=== PATIENT | female | born 1975 | race Two or more races ===

== ENCOUNTER 2017-04-13 07:09 | Emergency (ER) | payer BC ==
[2017-04-13 07:40] VITALS: TEMP 99.2; BMI 20.9
[2017-04-13] MEDS ORDERED: predniSONE 20 MG TABLET (UD) PO ONE (09:03)
[2017-04-13] MEDS ORDERED: ALBUTEROL SO4 2.5/IPRATROPIUM 0.5 INH SOL 3 ML VIAL.NEB. NEB ONE (09:03)
[2017-04-13] MEDS ORDERED: AZITHROMYCIN 500 MG TABLET PO ONE (09:04)
--- NOTE | 2017-04-13 11:17 | PDOC ---
History of Present Illness <Maicol Watts - Last Filed: 04/13/17 11:50> - History of Present Illness Initial Comments: 04/13/17 11:12 "The patient is a 42 year old female with no significant PMH who presents to the emergency department with productive cough which has worsened over the past few days. She describes her cough as productive of greenish sputum with associated throat tightness and shortness of breath. She also notes associated chest tightness which she describes as a burning sensation. The patients notes that the patient has had these symptoms for about 10 days which have worsened within the past 2-3 days. She reports taking Albuterol inhaler to some relief. Denies h/o asthma but states that she has been prescribed albuterol nebs in the past with URIs. The patient denies headache and dizziness. Denies fever, chills, nausea, vomit, diarrhea and constipation. Denies dysuria, frequency, urgency and hematuria. Allergies: NKA Past surgical history: . Tubal ligation. Social history: No reported cigarette, alcohol, or drug use PCP: None reported. " <Tommy Urbina - Last Filed: 04/14/17 18:54> - General Chief Complaint: Cold Symptoms Stated Complaint: DIFFICULTY BREATHING Time Seen by Provider: 04/13/17 08:54 Past History <Maicol Watts - Last Filed: 04/13/17 11:50> - Past Medical History Asthma: No Cancer: No Cardiac Disorders: No COPD: No Diabetes: No HTN: No Seizures: No Thyroid Disease: No - Suicide/Smoking/Psychosocial Hx Smoking Status: No Smoking History: Never smoked Years of Tobacco Use: 0 Have you smoked in the past 12 months: No Number of Cigarettes Smoked Daily: 0 Cigars Per Day: 0 Information on smoking cessation initiated: No Hx Alcohol Use: No Drug/Substance Use Hx: No Substance Use Type: None Hx Substance Use Treatment: No <Tommy Urbina - Last Filed: 04/14/17 18:54> - Past Medical History Allergies/Adverse Reactions: Allergies Allergy/AdvReac Type Severity Reaction Status Date / Time No Known Allergies Allergy Verified 11/06/15 16:43 Home Medications: Ambulatory Orders Azithromycin 250 mg PO DAILY #4 tablet 04/13/17 Prednisone [Prednisone 50 MG TABLETS] 50 mg PO DAILY #4 tablet 04/13/17 Review of Systems - Review of Systems Comments:: 04/13/17 11:13 "GENERAL/CONSTITUTIONAL: No fever or chills. No weakness. HEAD, EYES, EARS, NOSE AND THROAT: No change in vision. No ear pain or discharge. No sore throat. CARDIOVASCULAR: No chest pain or SOB RESPIRATORY: (+) Productive cough.. No wheezing or hemoptysis. GASTROINTESTINAL: No nausea, vomiting, diarrhea or constipation. GENITOURINARY: No dysuria, frequency, or change in urination. MUSCULOSKELETAL: No joint or muscle swelling or pain. No neck or back pain. SKIN: No rash NEUROLOGIC: No headache, vertigo, loss of consciousness, or change in strength/ sensation. ENDOCRINE: No increased thirst. No abnormal weight change. HEMATOLOGIC/LYMPHATIC: No anemia, easy bleeding, or history of blood clots. ALLERGIC/IMMUNOLOGIC: No hives or skin allergy. " <Tommy Urbina - Last Filed: 04/14/17 18:54> *Physical Exam - Vital Signs Last Vital Signs Temp Pulse Resp BP Pulse Ox 99.2 F 78 22 126/88 98 04/13/17 07:38 04/13/17 11:35 04/13/17 11:35 04/13/17 11:35 04/13/17 11:35 <Maicol Watts - Last Filed: 04/13/17 11:50> - Vital Signs Last Vital Signs Temp Pulse Resp BP Pulse Ox 99.2 F 82 20 127/101 100 04/13/17 07:38 04/13/17 07:38 04/13/17 07:38 04/13/17 07:38 04/13/17 07:38 - Physical Exam Comments: 04/13/17 11:14 "GENERAL: Awake, alert, and fully oriented, in no acute distress HEAD: No signs of trauma EYES: PERRLA, EOMI, sclera anicteric, conjunctiva clear ENT: Auricles normal inspection, hearing grossly normal, nares patent, oropharynx clear without exudates. Moist mucosa NECK: Nontender, no stepoffs, Normal ROM, supple, no lymphadenopathy, JVD, or masses LUNGS: Breath sounds equal, clear to auscultation bilaterally. No wheezes, and no crackles HEART: Regular rate and rhythm, normal S1 and S2, no murmurs, rubs or gallops ABDOMEN: Soft, nontender, normoactive bowel sounds. No guarding, no rebound. No masses EXTREMITIES: Normal range of motion, no edema. No clubbing or cyanosis. No cords, erythema, or tenderness NEUROLOGICAL: Cranial nerves II through XII intact. 5/5 strength and sensation in all extremities, Normal speech, normal gait SKIN: Warm, Dry, normal turgor, no rashes or lesions noted. " <Tommy Urbina - Last Filed: 04/14/17 18:54> ED Treatment Course - ADDITIONAL ORDERS Additional order review: Laboratory Results 04/13/17 09:06 Urine HCG, Qual Negative - Medications Given in the ED: ED Medications Discontinued Medications Generic Name Dose Route Start Last Admin Trade Name Freq PRN Reason Stop Dose Admin Albuterol/Ipratropium 1 amp 04/13/17 09:03 04/13/17 09:18 Duoneb - NEB 04/13/17 09:04 1 amp ONCE ONE Administration Azithromycin 500 mg 04/13/17 09:04 04/13/17 09:18 Azithromycin PO 04/13/17 09:05 500 mg ONCE ONE Administration Prednisone 40 mg 04/13/17 09:03 04/13/17 09:18 Deltasone - PO 04/13/17 09:04 40 mg ONCE ONE Administration <Maicol Watts - Last Filed: 04/13/17 11:50> - ADDITIONAL ORDERS Additional order review: Laboratory Results 04/13/17 09:06 Urine HCG, Qual Negative - RADIOLOGY Radiology Studies Ordered: Category Date Time Status CHEST PA & LAT [RAD] Stat Radiology 04/13/17 09:02 Completed - Medications Given in the ED: ED Medications Discontinued Medications Generic Name Dose Route Start Last Admin Trade Name Freq PRN Reason Stop Dose Admin Albuterol/Ipratropium 1 amp 04/13/17 09:03 04/13/17 09:18 Duoneb - NEB 04/13/17 09:04 1 amp ONCE ONE Administration Azithromycin 500 mg 04/13/17 09:04 04/13/17 09:18 Azithromycin PO 04/13/17 09:05 500 mg ONCE ONE Administration Prednisone 40 mg 04/13/17 09:03 04/13/17 09:18 Deltasone - PO 04/13/17 09:04 40 mg ONCE ONE Administration <Tommy Urbina - Last Filed: 04/14/17 18:54> Medical Decision Making - Medical Decision Making 04/13/17 11:16 42 F with productive cough x 10 days. Normal lung exam. Likely bronchitis. Pt has no h/o asthma but has responded to nebs in the past. - CXR - Trial of nebs, steroids - Azithromycin 04/13/17 11:19 CXR clear Pt reassessed s/p nebs and steroids - now feels somewhat better. Pt well appearing with normal vitals, Clinically stable for DC. I discussed the physical exam findings, ancillary test results and final diagnoses with the patient. I answered all of the patient's questions. The patient was satisfied with the care received and felt comfortable with the discharge plan and treatment plan. The patient agrees to follow up with the primary care physician within 24-72 hours. <Tommy Urbina - Last Filed: 04/14/17 18:54> *DC/Admit/Observation/Transfer - Attestations Scribe Attestion: 04/13/17 11:50 Documentation prepared by Maicol Watts, acting as director medical for Tommy Urbina MD. <Maicol Watts - Last Filed: 04/13/17 11:50> - Attestations Physician Attestion: 04/13/17 11:18 I, Dr. Tommy Urbina MD, attest that this document has been prepared under my direction and personally reviewed by me in its entirety. I further attest, that it accurately reflects all work, treatment, procedures and medical decision -making performed by me. <Tommy Urbina - Last Filed: 04/14/17 18:54> Diagnosis at time of Disposition: Bronchitis - Discharge Dispostion Disposition: HOME - Prescriptions Prescriptions: Azithromycin 250 mg PO DAILY #4 tablet Prednisone [Prednisone 50 MG TABLETS] 50 mg PO DAILY #4 tablet - Patient Instructions Printed Discharge Instructions: DI for Acute Bronchitis Additional Instructions: Take the prednisone and azithromycin as prescribed. You can also use your albuterol as needed for coughing. Follow up with your primary doctor on Sunday. If you experience worsening cough, chest pain, shortness of breath, or any other concerning symptoms, return to the ER immediately. Print Language: SLOVENIAN
[2017-04-13 11:46] VITALS: BP 126/88; PULSE 78
== END 2017-04-13 11:46 | disposition home or self-care (01) ==
LOC: JER 07:09
PROC: 3E0F7GC Introduction of Other Therapeutic Substance into Respiratory Tract, Via Natural or Artificial Opening (ICD-10-PCS; principal; 2017-04-13)
DX: J40 Bronchitis, not specified as acute or chronic (principal)
CPT/HCPCS: 71046-TC-FY; 84703; 99282-25

== ENCOUNTER 2017-07-11 08:41 | Emergency (ER) | payer BC ==
[2017-07-11 08:48] VITALS: BMI 25.1
--- NOTE | 2017-07-11 08:56 | PDOC ---
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 She states she feels slightly weak today and reports goosebumps but denies fevers or chills. She states she can not tolerate even small sips of water without exacerbating her symptoms. She reports multiple episodes of nonbilious/nonbloody emesis daily since. She reports multiple episodes of nonbloody diarrhea which she describes as yellow in color today. She states she has a child at home who had viral infection a couple days prior to her onset of symptoms. She also reports a throat burning sensation which she associates with vomiting. She states she is producing less urine, but denies hematuria, dysuria. She denies chest pain, shortness of breath, headache and dizziness. She denies fever, chills, constipation. She denies dysuria, urgency and hematuria. Allergies: NKDA Past surgical history: . Tubal ligation. Social history: No reported cigarette, alcohol, or drug use PCP: None reported. <Jojo Aceves - Last Filed: 07/11/17 10:33> <Mami Smith - Last Filed: 07/11/17 12:02> - General Chief Complaint: Vomiting/Diarrhea Stated Complaint: VOMITING Time Seen by Provider: 07/11/17 08:54 Past History <Jojo Aceves - Last Filed: 07/11/17 10:33> - Past Medical History Asthma: No Cancer: No Cardiac Disorders: No COPD: No Diabetes: No HTN: No Seizures: No Thyroid Disease: No - Suicide/Smoking/Psychosocial Hx Smoking Status: No Smoking History: Never smoked Years of Tobacco Use: 0 Have you smoked in the past 12 months: No Number of Cigarettes Smoked Daily: 0 Cigars Per Day: 0 Information on smoking cessation initiated: No Hx Alcohol Use: No Drug/Substance Use Hx: No Substance Use Type: None Hx Substance Use Treatment: No <Mami Smith - Last Filed: 07/11/17 12:02> - Past Medical History Allergies/Adverse Reactions: Allergies Allergy/AdvReac Type Severity Reaction Status Date / Time No Known Allergies Allergy Verified 07/11/17 08:42 Home Medications: Ambulatory Orders Azithromycin 250 mg PO DAILY #4 tablet 04/13/17 Prednisone [Prednisone 50 MG TABLETS] 50 mg PO DAILY #4 tablet 04/13/17 Ondansetron [Ondansetron Odt] 8 mg PO TID PRN #10 tab.rapdis 07/11/17 Review of Systems - Review of Systems Able to Perform ROS?: Yes Comments:: 07/11/17 09:44 GENERAL/CONSTITUTIONAL:(+) generalized weakness. No fever or chills. HEAD, EYES, EARS, NOSE AND THROAT: (+) throat burning. No change in vision. No ear pain or discharge. GASTROINTESTINAL: (+) nausea, vomiting, diarrhea. No constipation. GENITOURINARY: (+) slight decrease in urinary output. No dysuria, frequency CARDIOVASCULAR: No chest pain or shortness of breath. RESPIRATORY: No cough, wheezing, or hemoptysis. MUSCULOSKELETAL: No joint or muscle swelling or pain. No neck or back pain. SKIN: No rash NEUROLOGIC: No headache, vertigo, loss of consciousness, or change in strength/ sensation. ENDOCRINE: No increased thirst. No abnormal weight change. HEMATOLOGIC/LYMPHATIC: No anemia, easy bleeding, or history of blood clots. ALLERGIC/IMMUNOLOGIC: No hives or skin allergy. <Jojo Aceves - Last Filed: 07/11/17 10:33> *Physical Exam - Vital Signs Last Vital Signs Temp Pulse Resp BP Pulse Ox 98.7 F 93 H 14 138/84 99 07/11/17 08:42 07/11/17 08:42 07/11/17 08:42 07/11/17 08:42 07/11/17 08:57 - Physical Exam Comments: 07/11/17 09:44 Constitutional: Awake, alert, oriented. No acute distress. Head: Normocephalic. Atraumatic Eyes: PERRL. EOMI. Conjunctivae are not pale. ENT: (+)Mucous membranes are Dry and intact. Posterior pharynx without exudates or erythema. Uvula midline. Neck: Supple. Full ROM. No lymphadenopathy. Cardiovascular: (+) Tachycardic. Regular rhythm. S1, S2 regular. Distal pulses are 2+ and symmetric. Pulmonary/Chest: No evidence of respiratory distress. Clear to auscultation bilaterally No wheezing, rales or rhonchi. Abdominal: (+) Mildly diffusely tender with most discomfort to RUQ. Soft and non-distended. No rebound, guarding or rigidity. No organomegaly. No palpable masses. Good bowel sounds. Back: No CVA tenderness. Musculoskeletal: No edema. No cyanosis. No clubbing. Full range of motion in all extremities. Nocalf tenderness. Radial/pedal pulses are intact and 2+ bilaterally Skin: (+) Stimulator palpated to left buttock. Skin is warm and dry. No petechiae. No purpura. Neurological: (+) Pt weakly ambulating. Alert and oriented to person, place, and time. Cranial nerves II-XII are grossly intact. Normal speech. Strength is grossly symmetric. No sensory deficits. Psychiatric: Good eye contact. Normal interaction, affect and behavior. <Jojo Aceves - Last Filed: 07/11/17 10:33> - Vital Signs Last Vital Signs Temp Pulse Resp BP Pulse Ox 98.7 F 93 H 14 138/84 100 07/11/17 08:42 07/11/17 08:42 07/11/17 08:42 07/11/17 08:42 07/11/17 08:42 <Mami Smith - Last Filed: 07/11/17 12:02> Heart Score/ECG Review - ECG Intrepretation Comment:: 07/11/17 10:06 sinus at 68, nl axis, nl interval, t wave inversions III, t wave inversions v3, v4 <Mami Smith - Last Filed: 07/11/17 12:02> ED Treatment Course - LABORATORY CBC & Chemistry Diagram: 07/11/17 09:37 07/11/17 09:37 - RADIOLOGY Radiograph Interpretation: 07/11/17 10:33 EXAM#: TYPE/EXAM: RESULT: [id number] RAD/CHEST X-RAY PORTABLE* History. Shortness of breath Chest. AP sitting portable x-ray of the chest compared with April 13, 2017. Findings. The trachea is normal in size is not deviated. The lungs are well aerated. The cardiomediastinal silhouette, thoracic aorta, and hilar regions are normal. No evidence of effacement of the diaphragms, blunting of the costophrenic angles. The pulmonary vasculature pattern is normal. The lungs demonstrates no evidence of active pulmonary disease, pleural effusion or pneumothorax. No bulky hilar adenopathy is noted. Intact visualized osseous structures. Impression No evidence of active pulmonary disease. No pleural effusion, or pneumothorax is seen. Reported By: Jesus Moeller MD 07/11/17 0953 - Medications Given in the ED: ED Medications Discontinued Medications Generic Name Dose Route Start Last Admin Trade Name Freq PRN Reason Stop Dose Admin Al Hydroxide/Mg Hydroxide 30 ml 07/11/17 09:26 07/11/17 09:38 Mylanta Oral Suspension - PO 07/11/17 09:27 30 ml ONCE ONE Administration Ondansetron HCl 4 mg 07/11/17 09:26 07/11/17 09:38 Zofran Injection IVPUSH 07/11/17 09:27 4 mg ONCE ONE Administration Sodium Chloride 1,000 ml 07/11/17 09:26 07/11/17 09:38 Normal Saline - IV 07/11/17 09:27 1,000 ml ONCE ONE Administration <Jojo Aceves - Last Filed: 07/11/17 10:33> - LABORATORY CBC & Chemistry Diagram: 07/11/17 09:37 07/11/17 09:37 <Mami Smith - Last Filed: 07/11/17 12:02> Medical Decision Making - Medical Decision Making 07/11/17 09:27 a/p: 42yo female presents ambulatory for eval of n/v/d and abd pain since sunday -sick contact with similar symptoms -nonbloody nonbilious vomiting, nonbloody diarrhea -suspect viral gastroenteritis vs biliary colic vs other intraabd infection -will check labs, u/s, will monitor and reassess -ivf hydration, pepcid, zofran 07/11/17 11:55 labs and imaging discussed with the patient pt feeling much better po challenge given requesting to go home <Mami Smith - Last Filed: 07/11/17 12:02> *DC/Admit/Observation/Transfer - Attestations Scribe Attestion: 07/11/17 09:45 Documentation prepared by Jojo Aceves, acting as medical record retrieval specialist for Mami Smith DO, <Jojo Aceves - Last Filed: 07/11/17 10:33> - Discharge Dispostion Admit: No - Attestations Physician Attestion: 07/11/17 09:44 I, Dr. Mami Smith DO, attest that this document has been prepared under my direction and personally reviewed by me in its entirety. I further attest, that it accurately reflects all work, treatment, procedures and medical decision -making performed by me. <Mami Smith - Last Filed: 07/11/17 12:02> Diagnosis at time of Disposition: Viral syndrome, Diarrhea - Discharge Dispostion Disposition: HOME Condition at time of disposition: Stable - Prescriptions Prescriptions: Ondansetron [Ondansetron Odt] 8 mg PO TID PRN #10 tab.rapdis PRN Reason: Nausea - Referrals Referrals: Wayne Coelho MD [Staff Physician] - Jonathan Cook MD [Staff Physician] - - Patient Instructions Printed Discharge Instructions: DI for Diarrhea and Traveler's Diarrhea -- Adult, DI for Viral Syndrome Additional Instructions: Please drink plenty of fluids. Please take all medications as prescribed. Please stick to the BRAT diet (bananas, rice, apple sauce, and toast). Please return to the ED if you symptoms worsen or any further concerns or complaints. Please make an appointment to see your PMD. - Post Discharge Activity Forms/Work/School Notes: Back to Work
[2017-07-11] MEDS ORDERED: FAMOTIDINE 20 MG/50 ML IVPB 20 MG/50 ML MG IVPB ONE (09:26)
[2017-07-11] MEDS ORDERED: ONDANSETRON 4 MG/2 ML VIAL IVPUSH ONE (09:26)
[2017-07-11] MEDS ORDERED: MAG HYDROX/AL HYDROX/SIMETH 30 ML UNIT-DOSE CUP PO ONE (09:26)
[2017-07-11] MEDS ORDERED: SODIUM CHLORIDE 0.9% 1000 ML INFUS.BAG IV ONE (09:26)
[2017-07-11] MEDS ORDERED: MAG HYDROX/AL HYDROX/SIMETH 30 ML UNIT-DOSE CUP ONE (09:37)
[2017-07-11] MEDS ORDERED: ONDANSETRON 4 MG/2 ML VIAL ONE (09:37)
[2017-07-11 09:46] LABS: URINE APPEARANCE SLCLOUDY; URINE BILIRUBIN NEGATIVE (<2.0 mg/dL); URINE BLOOD NEGATIVE (NEGATIVE); URINE COLOR YELLOW; URINE GLUCOSE (UA) NEGATIVE (NEGATIVE); URINE KETONE 1+ (NEGATIVE); URINE LEUK ESTERASE NEGATIVE (NEGATIVE); URINE NITRITE NEGATIVE (NEGATIVE); URINE PROTEIN NEGATIVE (NEGATIVE); URINE UROBILINOGEN NEGATIVE mg/dL (0.2-1.0)
[2017-07-11 09:47] LABS: HCG,QUALITATIVE URINE NEGATIVE
[2017-07-11 09:56] LABS: BASO % 0.8 % (0-2.0); EOS % 0.1 % (0-4.5); HEMATOCRIT 40.4 % (32.4-45.2); HEMOGLOBIN 14.1 GM/dL (10.7-15.3); LYMPH % 22.4 % (8-40); MCHC 34.9 g/dl (32.0-36.0); MEAN PLT VOLUME 7.4 fl (7.5-11.1); MONO % 8.3 % (3.8-10.2); NEUT % 68.4 % (42.8-82.8); PLATELET COUNT 213 K/MM3 (134-434); RDW 13.8 % (11.6-15.6)
[2017-07-11 10:19] LABS: ANION GAP 7 (8-16); BILIRUBIN,TOTAL 0.7 mg/dL (0.2-1.0); BLOOD UREA NITROGEN 13 mg/dL (7-18); CALCIUM 8.4 mg/dL (8.5-10.1); CHLORIDE 109 mmol/L (98-107); CO2 24 mmol/L (21-32); CREATININE 0.8 mg/dL (0.55-1.02); GLUCOSE,RANDOM 88 mg/dL (74-106); LIPASE 111 U/L (73-393); MAGNESIUM 1.8 mg/dL (1.8-2.4); POTASSIUM 4.1 mmol/L (3.5-5.1); SGOT/AST 26 U/L (15-37); SGPT/ALT 30 U/L (12-78); SODIUM 140 mmol/L (136-145); TOT PROT 7.2 g/dl (6.4-8.2)
[2017-07-11 10:20] LABS: ALK PHOS 63 U/L (45-117)
[2017-07-11 12:40] VITALS: BP 123/85; PULSE 80; TEMP 98
--- NOTE | 2017-07-11 19:51 | EKG ---
Test Reason : Blood Pressure : / mmHG Vent. Rate : 068 BPM Atrial Rate : 068 BPM P-R Int : 142 ms QRS Dur : 072 ms QT Int : 376 ms P-R-T Axes : 032 008 -26 degrees QTc Int : 399 ms NORMAL SINUS RHYTHM NONSPECIFIC T WAVE ABNORMALITY ABNORMAL ECG WHEN COMPARED WITH ECG OF 05-OCT-2016 17:29, NO SIGNIFICANT CHANGE WAS FOUND Confirmed by FREDIS GONG MD ([id number]) on 07/11/2017 7:51:04 PM Referred By: Confirmed By:FREDIS GONG MD
== END 2017-07-11 12:40 | disposition home or self-care (01) ==
LOC: JER 08:41
PROC: 3E033GC Introduction of Other Therapeutic Substance into Peripheral Vein, Percutaneous Approach (ICD-10-PCS; principal; 2017-07-11)
PROC: 3E0337Z Introduction of Electrolytic and Water Balance Substance into Peripheral Vein, Percutaneous Approach (ICD-10-PCS; 2017-07-11)
DX: B34.9 Viral infection, unspecified (principal); R19.7 Diarrhea, unspecified
CPT/HCPCS: 36415; 71045-TC-FY; 76705-TC; 80053; 81003; 82550; 83605; 83690; 83735; 84484; 84703; 85025; 93005; 93010; 99284-25; J7030

== ENCOUNTER 2018-09-22 21:35 | Emergency (ER) | payer BC ==
[2018-09-22 21:54] VITALS: BMI 23.3
--- NOTE | 2018-09-22 22:16 | PDOC ---
History of Present Illness - General Chief Complaint: Head/Neck problem Stated Complaint: HEADACHE Time Seen by Provider: 09/22/18 22:12 History Source: Patient Exam Limitations: Language Barrier - History of Present Illness Initial Comments: Coretta Barahona is a 43 yo F w a pmh of remote migraines and bladder dysfunction s /p stimulator to left buttock 2004 who presents to the [facility] ER via private auto for a headache that has been going on for the past 5 days. She reports that before her symptoms started she experienced an aura and saw some flashing lights out of her left eye. Then her headache started last Sunday, has been constant, mild/occasional worsening. Frontal headache involves face and jaw. Since sun she has also had b/l lower and upper extremity numbness. She states her left extremities feel weaker and heavier. She says her left face also feels numb. Her left face hurts as well which she rates as a 9/10 in intensity. She states she was reaching up to grab a metal container on top of the refrigerator on Sunday which fell over and hit her on the head. She endorses photophobia and phonophobia. Also endorses left eye blurry vision. Denies speech changes. Hasn't been able to sleep well. Tried Excedrin, baby aspirin and ibuprofen without significant relief. Denies neck pain or fevers. She received a steroid shot on the of last month bc she states her urine was too acidic. LMP: September 11 PCP: Giuliana Burton Allergies: NKA, NKDA Past Surgical History: ; Tubal ligation Social History: Non-smoker. Denies alcohol or drug use. Past History - Past Medical History Allergies/Adverse Reactions: Allergies Allergy/AdvReac Type Severity Reaction Status Date / Time No Known Allergies Allergy Verified 07/11/17 08:42 Home Medications: Ambulatory Orders Azithromycin 250 mg PO DAILY #4 tablet 04/13/17 Prednisone [Prednisone 50 MG TABLETS] 50 mg PO DAILY #4 tablet 04/13/17 Ondansetron [Ondansetron Odt] 8 mg PO TID PRN #10 tab.rapdis 07/11/17 Asthma: No Cancer: No Cardiac Disorders: No COPD: No Diabetes: No HTN: No Seizures: No Thyroid Disease: No - Suicide/Smoking/Psychosocial Hx Smoking Status: No Smoking History: Never smoked Years of Tobacco Use: 0 Have you smoked in the past 12 months: No Number of Cigarettes Smoked Daily: 0 Cigars Per Day: 0 Information on smoking cessation initiated: No Hx Alcohol Use: No Drug/Substance Use Hx: No Substance Use Type: None Hx Substance Use Treatment: No Review of Systems - Review of Systems Able to Perform ROS?: Yes Comments:: CONSTITUTIONAL: Present: Fatigue Absent: fever, no chills EYES: Present: visual changes ENT: Absent: ear pain, no sore throat CARDIOVASCULAR: Absent: chest pain, no palpitations RESPIRATORY: Absent: cough, no SOB GI: Present: Nausea Absent: abdominal pain, no vomiting, no constipation, no diarrhea GENITOURINARY: Absent: dysuria, no frequency, no hematuria MUSKULOSKELETAL: Absent: back pain, no arthralgia, no myalgia SKIN: Absent: rash NEURO: Present: headache, paresthesia Absent: focal weakness, dizziness, unsteady gait, seizure, mental status changes , bladder or bowel incontinence *Physical Exam - Vital Signs Last Vital Signs Temp Pulse Resp BP Pulse Ox 98.3 F 81 20 140/89 100 09/22/18 21:52 09/22/18 21:52 09/22/18 21:52 09/22/18 21:52 09/22/18 21:52 - Physical Exam Comments: GENERAL: Patient looks sad. Overall tired appearing. Dimmed room bc light hurts. Mild active distress. HEENT: Normocephalic, atraumatic. PERRL, EOM intact. CARDIOVASCULAR: Normal S1, S2. Regular rate and rhythm. PULMONARY: No evidence of respiratory distress. Lungs clear to auscultation bilaterally. No wheezing, rales or rhonchi. ABDOMEN: Soft, non-distended, non-tender. EXTREMITIES: Normal ROM in all four extremities. No gross deformities. SKIN: Warm, dry. No rash NEUROLOGICAL: Alert, awake, appropriate. Cranial nerves 2-12 intact. No deficits to light touch in face. Mildly subjective decreased sensation in left arm. Normal sensation in left leg. No motor deficits in the in face and lower extremities. Normoreflexic in the upper and lower extremities. Normal speech. Toes are down- going bilaterally. Gait is normal without ataxia. Mild weakness in left arm, no weakness in left leg. ED Treatment Course - LABORATORY CBC & Chemistry Diagram: 09/22/18 23:11 07/14/19 23:11 Medical Decision Making - Medical Decision Making 43 yo relatively healthy female comes in with multiple complaints including headache, photophobia, phonophobia, migraine with aura suggestive of a complex migraine. Vital Signs Temp Pulse Resp BP Pulse Ox 98.3 F 81 20 140/89 100 09/22/18 21:52 09/22/18 21:52 09/22/18 21:52 09/22/18 21:52 09/22/18 21:52 DDx IBNLT: Headache - cluster vs migraine vs tension vs complex migraine, dehydration, electrolyte/metabolic disturbance, Plan: Labs, urine, EKG, IV hydration, analgesia, re-assess. EKG: Normal sinus rate of 76, No ST elevations or depressions, no abnormal TWI, NE - 136, QTc - 378. Labs: Unremarkable Urine: shows blood, prob from recent period Re-assessment: Patient feels much better after analgesia and requests to be discharged. Disposition: Home with neuro and PCP FU. *DC/Admit/Observation/Transfer Diagnosis at time of Disposition: Migraine Qualifiers: Migraine type: with aura Status migrainosus presence: without status migrainosus Intractability: not intractable Qualified Code(s): G43.109 - Migraine with aura, not intractable, without status migrainosus - Discharge Dispostion Disposition: HOME Condition at time of disposition: Improved Decision to Admit order: No - Referrals Referrals: Shaheen Garcia DO [Staff Physician] - - Patient Instructions Printed Discharge Instructions: Migraine Headaches (Alternative Therapy), DI for Migraine Additional Instructions: You came into the ER with a headache. We gave you some medications which made you feel much better and have no symptoms. We are giving you the number of a neurologist to call and schedule and appointment with in the next 3 to 5 days. Please make sure to call and schedule the appointment. Come back to the ER immediately if your pain returns, you start vomiting, get a headache, have a fever, neck pain, or any other new or worsening concerns. Thank you for coming to the [facility] ER. We hope you feel better soon! Print Language: CZECH - Post Discharge Activity
[2018-09-22] MEDS ORDERED: METOCLOPRAMIDE HCL INJECTION 10 MG/2 ML VIAL IVPUSH STA (23:03)
[2018-09-22] MEDS ORDERED: SODIUM CHLORIDE 1,000 ML IV ONE (23:03)
[2018-09-22] MEDS ORDERED: ACETAMINOPHEN 325 MG TABLET (FP) PO ONE (23:05)
[2018-09-22] MEDS ORDERED: ACETAMINOPHEN 325 MG TABLET (FP) ONE (23:27)
[2018-09-22] MEDS ORDERED: METOCLOPRAMIDE HCL INJECTION 10 MG/2 ML VIAL ONE (23:27)
[2018-09-22 23:31] LABS: BASO % 0.5 % (0-2.0); EOS % 0.3 % (0-4.5); HEMATOCRIT 43.9 % (32.4-45.2); HEMOGLOBIN 14.9 GM/dL (10.7-15.3); LYMPH % 21.8 % (8-40); MCH 29.9 pg (25.7-33.7); MEAN CELL VOLUME 87.9 fl (80-96); MONO % 8.2 % (3.8-10.2); NEUT % 69.2 % (42.8-82.8); PLATELET COUNT 198 K/MM3 (134-434); RBC 4.99 M/mm3 (3.60-5.2); RDW 15.3 % (11.6-15.6); WHITE BLOOD COUNT 7.3 K/mm3 (4.0-10.0)
[2018-09-22 23:38] LABS: EPI CELLS 4.5 /HPF (0-5/HPF); HYALINE CASTS 1 /lpf (0-8); URINE APPEARANCE CLOUDY; URINE BILIRUBIN NEGATIVE (NEGATIVE); URINE COLOR YELLOW; URINE GLUCOSE (UA) NEGATIVE (NEGATIVE); URINE KETONE NEGATIVE (NEGATIVE); URINE LEUK ESTERASE NEGATIVE (NEGATIVE); URINE NITRITE NEGATIVE (NEGATIVE); URINE PROTEIN NEGATIVE (NEGATIVE); URINE RBC 1 /hpf (0-4); URINE UROBILINOGEN 0.2 mg/dL (0.2-1.0); URINE WBC 2 /hpf (0-5)
[2018-09-22 23:58] VITALS: BP 120/76; PULSE 76; TEMP 98.2
[2018-09-22 23:59] LABS: ALBUMIN 3.8 g/dl (3.4-5.0); BILIRUBIN,TOTAL 0.6 mg/dL (0.2-1); BLOOD UREA NITROGEN 15.7 mg/dL (7-18); CALCIUM 8.8 mg/dL (8.5-10.1); CREATININE 0.9 mg/dL (0.55-1.3); TOT PROT 7.1 g/dl (6.4-8.2)
--- NOTE | 2018-09-23 00:29 | PDOC ---
Documentation entered by Rachelle Pearson SCRIBE, acting as scribe for Liv Snow MD. Liv Snow MD: This documentation has been prepared by the Lili arias Xhesika, SCRIBE, under my direction and personally reviewed by me in its entirety. I confirm that the documentation accurately reflects all work, treatment, procedures, and medical decision making performed by me. Attending Attestation - Resident Resident Name: Emerson Self - ED Attending Attestation I have performed the following: I have examined & evaluated the patient, The case was reviewed & discussed with the resident, I agree w/resident's findings & plan, Exceptions are as noted - HPI HPI: 09/22/18 23:02 The patient is a 43 year old female with a significant PMH of bladder dysfunction (s/p stimulater to left buttok 2004) who presents to the emergency department with 4 days of headache. The patient states, Sunday morning she was reaching for a metal container on top of her refidgorator, when the container fell and hit her head. The patient describes her headache as 9/10, painful, constant frontal headache involving her face and jaw. The patient notes she endorses 9/10 L facial numbness, L arm numbness, bilateral LLE weakness, R eye blurriness where she "saw blurry lights" associated with photophobia and phonophobia, secondary to her symptoms. The patient states she took, excedrin, ibuprofen, and baby Aspirin with no relief of symptoms, which prompted her arrival to the ED. Patient denies speech changes. She denies chest pain, shortness of breath, and dizziness. She denies fever, chills, diarrhea or constipation. She denies dysuria,frequency, urgency and hematuria. Allergies: Meliton [place] Past surgical history: . Tubal ligation. Social history: No reported cigarette, alcohol, or drug use PCP: None reported. - Physicial Exam PE: 09/23/18 00:06 wnwd 43 yo female p/w headache since Sun09/23/18 00:19 wnwd 43 yo female with c/o headache and pain in her face.jaw and forehead for 5 days head ncat eyes maryellen eomi neck supple lungs cta b/l cvs [id number] abd soft,nontender extremities no deformities dtr +2 b/l skin warm and dry psych appropriate neuro axox3,ambulates without difficulty, no field cuts,no diplopia, gets up and off the bed by herself,motor strength 5/5, b/l, no ataxia finger to nose and heel to mckeon had no ataxia - Medical Decision Making 09/23/18 00:27 her headache resolved w IVF , reglan and benadryl and she requested to be discharged 09/23/18 00:28 imp headache -new daily persistent,migraine resolved plan follow up with neurology and given Dr Garcia for this
--- NOTE | 2018-09-24 14:44 | EKG ---
Test Reason : Blood Pressure : / mmHG Vent. Rate : 076 BPM Atrial Rate : 076 BPM P-R Int : 136 ms QRS Dur : 078 ms QT Int : 336 ms P-R-T Axes : 076 029 021 degrees QTc Int : 378 ms NORMAL SINUS RHYTHM POSSIBLE LEFT ATRIAL ENLARGEMENT BORDERLINE ECG WHEN COMPARED WITH ECG OF 11-JUL-2017 09:42, T WAVE INVERSION NO LONGER EVIDENT IN ANTERIOR LEADS Confirmed by Horacio Herbert MD ([id number]) on 09/24/2018 2:44:18 PM Referred By: Confirmed By:Horacio Herbert MD
== END 2018-09-23 00:25 | disposition home or self-care (01) ==
LOC: JER 21:35
PROC: 3E0337Z Introduction of Electrolytic and Water Balance Substance into Peripheral Vein, Percutaneous Approach (ICD-10-PCS; principal; 2018-09-22)
PROC: 3E033GC Introduction of Other Therapeutic Substance into Peripheral Vein, Percutaneous Approach (ICD-10-PCS; 2018-09-22)
PROC: 3E033GC Introduction of Other Therapeutic Substance into Peripheral Vein, Percutaneous Approach (ICD-10-PCS; 2018-09-22)
DX: G43.109 Migraine with aura, not intractable, without status migrainosus (principal)
CPT/HCPCS: 36415; 80053; 81003; 84703; 85025; 93005; 93010; 99282-25; J7030